=== PATIENT | male | born 1940 | race Caucasian/White ===

== ENCOUNTER 2017-03-30 13:48 | Inpatient (IN) | payer MEDICARE, MEDICAID ==
[~2017-03-30] VITALS: Ht 167.6 cm; Wt 105.0 kg
[2017-03-30] MEDS ORDERED: normal saline 1000ML IV soln IVB ONE (14:25)
[2017-03-30 14:42] LABS: BASOPHILS % (AUTO) 0.2 % (0-1); EOSINOPHILS # (AUTO) 0.2 X10'3 (0-0.9); EOSINOPHILS % (AUTO) 1.9 % (0-6); HEMATOCRIT 41.4 % (42.0-52.0); HEMOGLOBIN 14.3 g/dl (14.0-17.9); LYMPHOCYTES # (AUTO) 0.5 X10'3 (1.1-4.8); MEAN CORPUSCULAR HEMOGLOBIN 34.9 PG (27.0-31.0); MEAN CORPUSCULAR HGB CONC 34.4 % (33.0-36.5); MEAN CORPUSCULAR VOLUME 101.3 FL (78-98); MEAN PLATELET VOLUME 6.8 FL (7.4-10.4); MONOCYTES # (AUTO) 0.7 X10'3 (0-0.9); MONOCYTES % (AUTO) 5.7 % (2-12); NEUTROPHILS # (AUTO) 10.3 X10'3 (1.8-7.7); NEUTROPHILS % (AUTO) 88.2 % (42-75); PLATELET COUNT 179 X10'3 (140-440); RED BLOOD COUNT 4.09 X10'6 (4.70-6.10); RED CELL DISTRIBUTION WIDTH 14.4 % (11.5-14.5); WHITE BLOOD COUNT 11.7 X10'3 (4.5-11.0)
[2017-03-30 14:53] LABS: INR 1.2 INR; PARTIAL THROMBOPLASTIN TIME 28 SECONDS (22-32); PROTHROMBIN TIME 12.1 SECONDS (9.0-12.0)
[2017-03-30 14:57] LABS: ALANINE AMINOTRANSFERASE 24 U/L (12-78); ALBUMIN 2.8 G/DL (3.4-5.0); ALBUMIN/GLOBULIN RATIO 0.5 (1.1-1.5); ALKALINE PHOSPHATASE 126 IU/L (46-116); ANION GAP 10 (8-16); ASPARTATE AMINO TRANSFERASE 115 U/L (10-37); BILIRUBIN,TOTAL 1.5 MG/DL (0.1-1.0); BLOOD UREA NITROGEN 13 MG/DL (7-18); CALCIUM 8.5 MG/DL (8.5-10.1); CHLORIDE 99 MMOL/L (99-107); CREATININE 1.45 MG/DL (0.60-1.10); GLUCOSE 123 MG/DL (70-104); SODIUM 135 MMOL/L (135-145); TOTAL CARBON DIOXIDE 26.2 MMOL/L (24-32); eGFR 47 ML/MIN
[2017-03-30 15:01] LABS: ETHANOL < 0.010 GM/DL (0.0-0.010)
[2017-03-30 15:16] LABS: LACTIC SEPSIS 4.3 MMOL/L (0.4-2.0)
[2017-03-30] MEDS ORDERED: potassium Cl 20 mEq SR tablet PO STA (15:30)
[2017-03-30] MEDS ORDERED: levoFLOXACIN-Levaquin 750MG/D5 150 ML IV STA (15:32)
[2017-03-30] MEDS ORDERED: normal saline 1000ml 1,000 ML IV ONE (15:35)
[2017-03-30 16:21] LABS: CLARITY,URINE SLIGHTLY CLOUDY (Clear); COLOR,URINE AMBER (Yellow); GLUCOSE, URINE NEGATIVE (Neg); KETONES,URINE TRACE mg/dl (Neg); LEUKOCYTE ESTERASE ,URINE NEGATIVE (Neg); NITRITES, URINE NEGATIVE (Neg); OCCULT BLOOD,URINE LARGE (Neg); PH,URINE 6.5 (4.8-8.0); PROTEIN,URINE 100 mg/dl (Neg); UROBILINOGEN,URINE >=8.0 E.U/dL (0.2-1.0)
[2017-03-30 16:26] LABS: UA COLLECTION TYPE FOLEY CATH
[2017-03-30 16:29] LABS: BACTERIA,URINE NONE SEEN /HPF (Neg); MUCUS STRANDS MODERATE /LPF (Neg); SQUAMOUS EPITHELIAL CELL,UR FEW /LPF (FEW); WBC,URINE 0-4 /HPF (0-4)
[2017-03-30] MEDS ORDERED: ondansetron/PF 4mg/2ml inj IV ONE (16:40)
[2017-03-30] MEDS ORDERED: HYDROmorphone inj. 0.5 MG/0.5 ML DISP.SYRIN IV ONE (16:40)
[2017-03-30] MEDS ORDERED: iohexol 350MG/ML 100ml bottle IV ONE (17:04)
[2017-03-30] MEDS ORDERED: enoxaparin 100mg/ml syringe SUBCUT ONE (18:00)
[2017-03-30 18:23] LABS: CREATINE KINASE 3728 U/L (39-308)
[2017-03-30] MEDS ORDERED: morphine 2 MG/ML inj. syringe IV PRN ×3 (20:40→23:05)
[2017-03-30] MEDS ORDERED: mag hydrox/Alum hydrox/simeth 30ml oral suspension PO PRN (20:40)
[2017-03-30] MEDS ORDERED: acetaminophen 325mg tablet PO PRN ×2 (20:40)
[2017-03-30] MEDS ORDERED: magnesium hydroxide 30ml (MOM) UD suspension PO PRN (20:40)
[2017-03-30] MEDS ORDERED: ondansetron/PF 4mg/2ml inj IV PRN (20:40)
[2017-03-30] MEDS ORDERED: potassium Cl 40MEQ/NS 500ml 500 ML IV PRN ×2 (20:50)
[2017-03-30] MEDS ORDERED: potassium Cl 20 mEq SR tablet PO PRN (20:50)
[2017-03-30] MEDS: normal saline 1000ml 1,000 ML IV SCH (21:05)
[2017-03-30] MEDS ORDERED: enoxaparin 100mg/ml syringe SUBCUT SCH (21:14)
[2017-03-30 22:00] VITALS: BP 128/63
[2017-03-31] MEDS: morphine 10mg/ml inj. IV PRN ×2 (00:14→19:05)
[2017-03-31 02:00] VITALS: BP 151/78
[2017-03-31] MEDS: enoxaparin 100mg/ml syringe SUBCUT SCH ×2 (02:55→09:32)
[2017-03-31 06:00] VITALS: BP 133/68
[2017-03-31 06:07] LABS: BASOPHILS % (AUTO) 0.2 % (0-1); EOSINOPHILS # (AUTO) 0.2 X10'3 (0-0.9); EOSINOPHILS % (AUTO) 2.1 % (0-6); HEMATOCRIT 36.5 % (42.0-52.0); HEMOGLOBIN 12.5 g/dl (14.0-17.9); LYMPHOCYTES # (AUTO) 1.2 X10'3 (1.1-4.8); LYMPHOCYTES % (AUTO) 11.9 % (21-51); MEAN CORPUSCULAR HEMOGLOBIN 34.9 PG (27.0-31.0); MEAN CORPUSCULAR HGB CONC 34.1 % (33.0-36.5); MEAN CORPUSCULAR VOLUME 102.3 FL (78-98); MEAN PLATELET VOLUME 7.5 FL (7.4-10.4); MONOCYTES # (AUTO) 0.7 X10'3 (0-0.9); MONOCYTES % (AUTO) 6.4 % (2-12); NEUTROPHILS # (AUTO) 8.2 X10'3 (1.8-7.7); NEUTROPHILS % (AUTO) 79.4 % (42-75); PLATELET COUNT 173 X10'3 (140-440); RED BLOOD COUNT 3.57 X10'6 (4.70-6.10); RED CELL DISTRIBUTION WIDTH 14.9 % (11.5-14.5); WHITE BLOOD COUNT 10.4 X10'3 (4.5-11.0)
[2017-03-31 06:45] LABS: ALBUMIN 2.2 G/DL (3.4-5.0); ANION GAP 7 (8-16); BLOOD UREA NITROGEN 12 MG/DL (7-18); CALCIUM 8.2 MG/DL (8.5-10.1); CHLORIDE 105 MMOL/L (99-107); CREATINE KINASE 2079 U/L (39-308); CREATININE 0.92 MG/DL (0.60-1.10); GLUCOSE 73 MG/DL (70-104); MAGNESIUM 1.9 MG/DL (1.5-2.4); POTASSIUM 3.4 MMOL/L (3.5-5.1); SODIUM 138 MMOL/L (135-145); TOTAL CARBON DIOXIDE 26.1 MMOL/L (24-32); eGFR 80 ML/MIN
[2017-03-31] MEDS ORDERED: lactobacillus rhamnosus 10,000 MMU CELLS/CAPSULE PO SCH (07:30)
[2017-03-31] MEDS: levoFLOXACIN-Levaquin 750MG/D5 150 ML IV SCH (09:28)
[2017-03-31] MEDS: LACTOBACILLUS RHAMNOSUS GG 15 billion unit sprinkle caps PO SCH (09:28)
[2017-03-31] MEDS: potassium Cl 20 mEq SR tablet PO PRN ×3 (09:31→17:25)
[2017-03-31] MEDS ORDERED: enoxaparin 80mg/0.8ml syringe SUBCUT SCH (10:30)
[2017-03-31 11:00] VITALS: BP 103/67
[2017-03-31] MEDS: normal saline 1000ml 1,000 ML IV SCH ×2 (11:18→16:40)
[2017-03-31] MEDS ORDERED: NO HOME MEDS (14:54)
[2017-03-31 15:00] VITALS: BP 125/60
[2017-03-31] MEDS ORDERED: ipratropium/albuterol 3ml nebule NEB PRN (16:30)
[2017-03-31] MEDS ORDERED: FLU VACC QS2017-18 36MOS UP/PF 60 MCG/0.5 ML SYRINGE IMVAC ONE (17:20)
[2017-03-31] MEDS ORDERED: pneumococcal 23-VAL P-sac vacc 25 mcg/0.5ml vial IMVAC ONE (17:20)
[2017-03-31 19:00] VITALS: BP 166/115
[2017-03-31] MEDS: enoxaparin 80mg/0.8ml syringe SUBCUT SCH (20:07)
[2017-03-31] MEDS: enoxaparin 30mg/0.3ml syringe SUBCUT SCH (20:07)
[2017-03-31 23:06] VITALS: BP 96/57
[2017-04-01] MEDS: normal saline 1000ml 1,000 ML IV SCH ×3 (02:40→21:58)
[2017-04-01 02:50] VITALS: BP 97/61
[2017-04-01 05:42] LABS: BASOPHILS % (AUTO) 0.4 % (0-1); EOSINOPHILS # (AUTO) 0.1 X10'3 (0-0.9); HEMATOCRIT 33.1 % (42.0-52.0); HEMOGLOBIN 11.1 g/dl (14.0-17.9); LYMPHOCYTES # (AUTO) 1.1 X10'3 (1.1-4.8); LYMPHOCYTES % (AUTO) 12.1 % (21-51); MEAN CORPUSCULAR HEMOGLOBIN 34.4 PG (27.0-31.0); MEAN CORPUSCULAR HGB CONC 33.6 % (33.0-36.5); MEAN CORPUSCULAR VOLUME 102.5 FL (78-98); MEAN PLATELET VOLUME 7.2 FL (7.4-10.4); MONOCYTES # (AUTO) 0.5 X10'3 (0-0.9); NEUTROPHILS # (AUTO) 7.2 X10'3 (1.8-7.7); NEUTROPHILS % (AUTO) 80.5 % (42-75); PLATELET COUNT 187 X10'3 (140-440); RED BLOOD COUNT 3.23 X10'6 (4.70-6.10); WHITE BLOOD COUNT 8.9 X10'3 (4.5-11.0)
[2017-04-01 05:59] LABS: ALBUMIN 1.8 G/DL (3.4-5.0); ANION GAP 6 (8-16); BLOOD UREA NITROGEN 13 MG/DL (7-18); BUN/CREATININE RATIO 14.8 (5.4-32.0); CALCIUM 7.6 MG/DL (8.5-10.1); CHLORIDE 105 MMOL/L (99-107); CREATININE 0.88 MG/DL (0.60-1.10); GLUCOSE 80 MG/DL (70-104); MAGNESIUM 1.7 MG/DL (1.5-2.4); POTASSIUM 3.8 MMOL/L (3.5-5.1); SODIUM 135 MMOL/L (135-145); TOTAL CARBON DIOXIDE 23.6 MMOL/L (24-32); eGFR 84 ML/MIN
[2017-04-01 06:00] VITALS: BP 104/64
[2017-04-01] MEDS: enoxaparin 80mg/0.8ml syringe SUBCUT SCH ×2 (08:05→19:38)
[2017-04-01] MEDS: levoFLOXACIN-Levaquin 750MG/D5 150 ML IV SCH (08:06)
[2017-04-01] MEDS: LACTOBACILLUS RHAMNOSUS GG 15 billion unit sprinkle caps PO SCH (08:06)
[2017-04-01] MEDS: enoxaparin 30mg/0.3ml syringe SUBCUT SCH ×2 (08:06→19:37)
[2017-04-01 11:00] VITALS: BP 129/69
[2017-04-01 15:00] VITALS: BP 125/63
[2017-04-01 19:00] VITALS: BP 131/71
[2017-04-01] MEDS: emollient combination-Eucerin 250 ML LOTION TP SCH ×2 (19:38→20:00)
[2017-04-01 23:00] VITALS: BP 124/70
[2017-04-02 03:00] VITALS: BP 134/74
[2017-04-02 06:00] VITALS: BP 112/71
[2017-04-02 06:25] LABS: BASOPHILS % (AUTO) 0.3 % (0-1); EOSINOPHILS # (AUTO) 0.2 X10'3 (0-0.9); EOSINOPHILS % (AUTO) 2.8 % (0-6); HEMATOCRIT 31.3 % (42.0-52.0); HEMOGLOBIN 10.6 g/dl (14.0-17.9); LYMPHOCYTES % (AUTO) 12.8 % (21-51); MEAN CORPUSCULAR HEMOGLOBIN 34.6 PG (27.0-31.0); MEAN CORPUSCULAR HGB CONC 33.9 % (33.0-36.5); MEAN CORPUSCULAR VOLUME 102.2 FL (78-98); MEAN PLATELET VOLUME 7.3 FL (7.4-10.4); MONOCYTES # (AUTO) 0.4 X10'3 (0-0.9); MONOCYTES % (AUTO) 4.8 % (2-12); NEUTROPHILS # (AUTO) 5.9 X10'3 (1.8-7.7); NEUTROPHILS % (AUTO) 79.3 % (42-75); PLATELET COUNT 186 X10'3 (140-440); RED BLOOD COUNT 3.06 X10'6 (4.70-6.10); RED CELL DISTRIBUTION WIDTH 14.3 % (11.5-14.5); WHITE BLOOD COUNT 7.5 X10'3 (4.5-11.0)
[2017-04-02] MEDS: normal saline 1000ml 1,000 ML IV SCH ×2 (06:49→19:50)
[2017-04-02 06:59] LABS: ALBUMIN 1.6 G/DL (3.4-5.0); ANION GAP 9 (8-16); BLOOD UREA NITROGEN 11 MG/DL (7-18); BUN/CREATININE RATIO 13.8 (5.4-32.0); CALCIUM 7.4 MG/DL (8.5-10.1); CHLORIDE 103 MMOL/L (99-107); CREATINE KINASE 343 U/L (39-308); GLUCOSE 74 MG/DL (70-104); MAGNESIUM 1.7 MG/DL (1.5-2.4); POTASSIUM 3.6 MMOL/L (3.5-5.1); SODIUM 135 MMOL/L (135-145); TOTAL CARBON DIOXIDE 23.3 MMOL/L (24-32); eGFR > 90 ML/MIN
[2017-04-02] MEDS: LACTOBACILLUS RHAMNOSUS GG 15 billion unit sprinkle caps PO SCH (08:56)
[2017-04-02] MEDS: emollient combination-Eucerin 250 ML LOTION TP SCH ×2 (08:57→20:00)
[2017-04-02] MEDS: enoxaparin 30mg/0.3ml syringe SUBCUT SCH ×2 (08:57→20:30)
[2017-04-02] MEDS: enoxaparin 80mg/0.8ml syringe SUBCUT SCH ×2 (08:57→20:31)
[2017-04-02 11:00] VITALS: BP 109/70
[2017-04-02] MEDS: levoFLOXACIN 750MG TABLET PO SCH (11:04)
[2017-04-02 15:11] LABS: PSA, FREE <0.01 ng/mL
[2017-04-02 19:00] VITALS: BP 125/72
[2017-04-03] VITALS: BP 130/73
[2017-04-03 03:00] VITALS: BP 139/69
[2017-04-03 06:00] VITALS: BP 115/79
[2017-04-03 07:02] LABS: BASOPHILS % (AUTO) 0.7 % (0-1); EOSINOPHILS # (AUTO) 0.2 X10'3 (0-0.9); HEMATOCRIT 33.4 % (42.0-52.0); HEMOGLOBIN 11.1 g/dl (14.0-17.9); LYMPHOCYTES # (AUTO) 1.1 X10'3 (1.1-4.8); LYMPHOCYTES % (AUTO) 14.9 % (21-51); MEAN CORPUSCULAR HEMOGLOBIN 34.4 PG (27.0-31.0); MEAN CORPUSCULAR HGB CONC 33.3 % (33.0-36.5); MEAN CORPUSCULAR VOLUME 103.3 FL (78-98); MEAN PLATELET VOLUME 7.2 FL (7.4-10.4); MONOCYTES # (AUTO) 0.4 X10'3 (0-0.9); MONOCYTES % (AUTO) 5.4 % (2-12); NEUTROPHILS # (AUTO) 5.4 X10'3 (1.8-7.7); PLATELET COUNT 206 X10'3 (140-440); RED BLOOD COUNT 3.23 X10'6 (4.70-6.10); RED CELL DISTRIBUTION WIDTH 14.6 % (11.5-14.5); WHITE BLOOD COUNT 7.1 X10'3 (4.5-11.0)
[2017-04-03 07:16] LABS: ALBUMIN 1.7 G/DL (3.4-5.0); ANION GAP 8 (8-16); BLOOD UREA NITROGEN 11 MG/DL (7-18); BUN/CREATININE RATIO 12.2 (5.4-32.0); CALCIUM 7.2 MG/DL (8.5-10.1); CHLORIDE 104 MMOL/L (99-107); GLUCOSE 100 MG/DL (70-104); MAGNESIUM 1.9 MG/DL (1.5-2.4); POTASSIUM 3.2 MMOL/L (3.5-5.1); SODIUM 137 MMOL/L (135-145); TOTAL CARBON DIOXIDE 24.7 MMOL/L (24-32); eGFR 82 ML/MIN
[2017-04-03] MEDS: LACTOBACILLUS RHAMNOSUS GG 15 billion unit sprinkle caps PO SCH (08:27)
[2017-04-03] MEDS: emollient combination-Eucerin 250 ML LOTION TP SCH ×2 (08:27→20:00)
[2017-04-03] MEDS: enoxaparin 80mg/0.8ml syringe SUBCUT SCH ×2 (08:28→21:46)
[2017-04-03] MEDS: enoxaparin 30mg/0.3ml syringe SUBCUT SCH ×2 (08:28→21:45)
[2017-04-03 09:13] LABS: PROTEIN S, FREE 48 % (57-157); PROTEIN S, TOTAL 73 % (60-150)
[2017-04-03 11:00] VITALS: BP 130/78
[2017-04-03] MEDS ORDERED: potassium Cl 40MEQ/NS 500ml 500 ML IV PRN ×2 (11:05)
[2017-04-03] MEDS ORDERED: potassium Cl 20 mEq SR tablet PO PRN (11:05)
[2017-04-03] MEDS: potassium Cl 20 mEq SR tablet PO PRN ×3 (12:56→21:55)
[2017-04-03] MEDS: levoFLOXACIN 750MG TABLET PO SCH (12:56)
[2017-04-03] MEDS: normal saline 1000ml 1,000 ML IV SCH (13:13)
[2017-04-03 15:00] VITALS: BP 137/64
[2017-04-03 20:00] VITALS: BP 137/71
[2017-04-04] VITALS (7 sets, daily range): BP systolic 98–131; BP diastolic 50–76
[2017-04-04 06:00] LABS: BASOPHILS % (AUTO) 0.6 % (0-1); EOSINOPHILS # (AUTO) 0.2 X10'3 (0-0.9); EOSINOPHILS % (AUTO) 2.7 % (0-6); HEMATOCRIT 31.8 % (42.0-52.0); HEMOGLOBIN 10.5 g/dl (14.0-17.9); LYMPHOCYTES # (AUTO) 1.1 X10'3 (1.1-4.8); MEAN CORPUSCULAR HEMOGLOBIN 34.2 PG (27.0-31.0); MEAN CORPUSCULAR HGB CONC 33.2 % (33.0-36.5); MEAN CORPUSCULAR VOLUME 103.2 FL (78-98); MONOCYTES # (AUTO) 0.4 X10'3 (0-0.9); MONOCYTES % (AUTO) 6.1 % (2-12); NEUTROPHILS # (AUTO) 4.6 X10'3 (1.8-7.7); NEUTROPHILS % (AUTO) 72.6 % (42-75); PLATELET COUNT 204 X10'3 (140-440); RED BLOOD COUNT 3.08 X10'6 (4.70-6.10); RED CELL DISTRIBUTION WIDTH 14.5 % (11.5-14.5); WHITE BLOOD COUNT 6.4 X10'3 (4.5-11.0)
[2017-04-04 06:16] LABS: ALBUMIN 1.7 G/DL (3.4-5.0); ANION GAP 4 (8-16); BLOOD UREA NITROGEN 8 MG/DL (7-18); BUN/CREATININE RATIO 10.4 (5.4-32.0); CALCIUM 7.7 MG/DL (8.5-10.1); CHLORIDE 106 MMOL/L (99-107); CREATININE 0.77 MG/DL (0.60-1.10); GLUCOSE 79 MG/DL (70-104); MAGNESIUM 1.8 MG/DL (1.5-2.4); POTASSIUM 3.8 MMOL/L (3.5-5.1); SODIUM 135 MMOL/L (135-145); TOTAL CARBON DIOXIDE 25.4 MMOL/L (24-32); eGFR > 90 ML/MIN
[2017-04-04] MEDS: LACTOBACILLUS RHAMNOSUS GG 15 billion unit sprinkle caps PO SCH (08:10)
[2017-04-04] MEDS: enoxaparin 30mg/0.3ml syringe SUBCUT SCH ×2 (08:11→19:43)
[2017-04-04] MEDS: enoxaparin 80mg/0.8ml syringe SUBCUT SCH ×2 (08:11→19:43)
[2017-04-04] MEDS: vitamin B comp w/Vit. C tab 1 TAB TABLET PO SCH (08:12)
[2017-04-04] MEDS: emollient combination-Eucerin 250 ML LOTION TP SCH ×2 (08:13→20:00)
[2017-04-04] MEDS: normal saline 1000ml 1,000 ML IV SCH (09:20)
[2017-04-04] MEDS: levoFLOXACIN 750MG TABLET PO SCH (12:28)
[2017-04-05 03:00] VITALS: BP 126/63
[2017-04-05] MEDS: normal saline 1000ml 1,000 ML IV SCH (04:04)
[2017-04-05 06:00] VITALS: BP 125/72
[2017-04-05] MEDS: vitamin B comp w/Vit. C tab 1 TAB TABLET PO SCH (08:56)
[2017-04-05] MEDS: LACTOBACILLUS RHAMNOSUS GG 15 billion unit sprinkle caps PO SCH (08:56)
[2017-04-05] MEDS: emollient combination-Eucerin 250 ML LOTION TP SCH (08:57)
[2017-04-05] MEDS: enoxaparin 80mg/0.8ml syringe SUBCUT SCH (08:57)
[2017-04-05] MEDS: enoxaparin 30mg/0.3ml syringe SUBCUT SCH (08:57)
[2017-04-05] MEDS: levoFLOXACIN 750MG TABLET PO SCH (10:27)
[2017-04-05 11:00] VITALS: BP 137/73
== END 2017-04-05 15:45 | DRG 871 ==
LOC: ER 13:49 → ED HOLD 20:40 → PCU 3S 21:53
PROVIDERS: ADMIT Internal Medicine; ATTEND Internal Medicine
PROC: B32T1ZZ Computerized Tomography (CT Scan) of Left Pulmonary Artery using Low Osmolar Contrast (ICD-10-PCS; principal; 2017-03-30)
PROC: B3201ZZ Computerized Tomography (CT Scan) of Thoracic Aorta using Low Osmolar Contrast (ICD-10-PCS; 2017-03-30)
PROC: B32S1ZZ Computerized Tomography (CT Scan) of Right Pulmonary Artery using Low Osmolar Contrast (ICD-10-PCS; 2017-03-30)
DX: A41.9 Sepsis, unspecified organism (principal); I26.99 Other pulmonary embolism without acute cor pulmonale; G93.41 Metabolic encephalopathy; I82.402 Acute embolism and thrombosis of unspecified deep veins of left lower extremity; N17.9 Acute kidney failure, unspecified; J18.1 Lobar pneumonia, unspecified organism; E86.0 Dehydration; M62.82 Rhabdomyolysis; R74.8 Abnormal levels of other serum enzymes; E78.00 Pure hypercholesterolemia, unspecified; E78.5 Hyperlipidemia, unspecified; I10 Essential (primary) hypertension; I25.10 Atherosclerotic heart disease of native coronary artery without angina pectoris; W18.39XA Other fall on same level, initial encounter; Z60.2 Problems related to living alone; Z79.899 Other long term (current) drug therapy; Z79.01 Long term (current) use of anticoagulants; Z79.82 Long term (current) use of aspirin; Z85.07 Personal history of malignant neoplasm of pancreas; Z85.46 Personal history of malignant neoplasm of prostate; Y93.89 Activity, other specified; Y92.89 Other specified places as the place of occurrence of the external cause; Y99.8 Other external cause status
CPT/HCPCS: 36415; 70450; 71045; 71275; 72170; 80048; 80053; 80320; 81001; 81479; 82140; 82550; 82607; 82746; 83605; 83735; 83880; 83891; 83894; 83898; 84153; 84154; 84484; 85025; 85303; 85305; 85306; 85597; 85610; 85730; 86146; 86147; 87040; 87070; 90732; 93005; 93306; 93970; 94760; 96361; 96365; 96372; 96375; 97110; 97116; 97161; 99285; A4315; A4333; A4353; A6213; A6250; J1170; J1650; J1956; J2270; J2405; J7030; Q9967